=== PATIENT | male | born 1950 | race Caucasian/White ===

== ENCOUNTER 2017-08-03 18:45 | Emergency (ER) | payer BC ==
[~2017-08-03] VITALS: Ht 172.7 cm; Wt 109.1 kg
[~2017-08-03 18:45] MED LIST: 00186-0370-20 IH; ASPIR-LOW81 MG PO; ASPIRIN E.C. 8181 MG PO; AVAPRO TAB150 MG/TAB PO; AVAPRO75 MG PO; CETIRIZINE10 MG PO; COZAAR 50MG50 MG/TAB PO; COZAAR50 MG PO; CYCLOBENZAPRINE10 MG PO; DEPO-TESTOS100 MG/ML IM; DEPO-TESTOS200 MG/M1 IM; EC NAPROSYN500 MG PO; FLEXERIL 1010 MG/TAB PO; FLOMAX 0.40.4 MG/CAP PO; FLOMAX0.4 MG PO; GABAPENTIN400 MG PO; GLUCOPHAGE500 MG/TAB PO; LEVOTHROID0.1 MG PO; LEVOTHROID0.125 MG PO; LEVOTHYROXINE0.1 MG PO; LEXAPRO 10MG10 MG PO; LEXAPRO10 MG PO; LIPITOR 80MG80 MG PO; MULTAQ400 M1 PO; NASACORT A55 MCG/ACT NS; NASACORT AQ N16.5 GM NS; NASACORT55 MCG/ACT NS; NEURONTIN100 MG PO; NEURONTIN400 MG/CAP PO; NORCO 325 MG-7.1 TAB PO; PACERONE200 MG PO; PRADAXA 150MG150 MG PO; PRAVACHOL 20MG20 MG PO; PRAVACHOL40 MG PO; PRAVASTATIN40 MG PO; PROTONIX 40MG T40 MG PO; ROXICODONE 55 MG/TAB PO; SINGULAIR10 MG PO; SYMBICORT1 AE1 IH; SYNTHROID0.1 MG/TAB PO; TAMBOCOR 1100 MG/TAB PO; TAMBOCOR150 MG PO; TRI NS; TRICOR 48MG48 MG PO; ULTRAM 50MG TAB50 MG PO; ZYRTEC 10MG10 MG PO; [UNRECOGNIZED DRUG - OTHER] NS
[2017-08-03 18:48] VITALS: BP 151/96; TEMP 98.7
[2017-08-03] MEDS ORDERED: [UNRECOGNIZED DRUG - REMARK] PO (19:48)
[2017-08-03] MEDS ORDERED: ELIQUIS 5MG PO (19:49)
[2017-08-03] MEDS ORDERED: DULERA1 ARO IH (19:49)
[2017-08-03] MEDS ORDERED: FERRO-TIME325 MG PO (19:50)
[2017-08-03] MEDS ORDERED: FOLIC ACID 11 MG/TA1 PO (19:50)
[2017-08-03] MEDS ORDERED: GLUCOPHAGE500 MG/TAB PO (19:51)
[2017-08-03] MEDS ORDERED: PRAVACHOL 40MG40 MG PO (19:52)
[2017-08-03 20:18] VITALS: PULSE 85
== END 2017-08-03 20:19 | disposition home or self-care (01) ==
LOC: COL.ER 18:45
DX: S20.211A Contusion of right front wall of thorax, initial encounter (principal); M25.511 Pain in right shoulder; I10 Essential (primary) hypertension; E11.9 Type 2 diabetes mellitus without complications; I48.91 Unspecified atrial fibrillation; Z79.84 Long term (current) use of oral hypoglycemic drugs; W01.10XA Fall on same level from slipping, tripping and stumbling with subsequent striking against unspecified object, initial encounter
CPT/HCPCS: A9284

== ENCOUNTER 2020-08-16 13:50 | Emergency (ER) | payer BC, MEDICARE ==
[~2020-08-16] VITALS: Ht 172.7 cm; Wt 104.5 kg
[~2020-08-16 13:50] MED LIST changes: -COZAAR 50MG50 MG/TAB PO; +DIOVAN 80MG80 MG PO; +DULERA1 ARO IH; +ELIQUIS 5MG PO; +FERRO-TIME325 MG PO; +FOLIC ACID 11 MG/TA1 PO; +PRAVACHOL80 MG PO; +SYNTHROID0.088 MG/T PO; -SYNTHROID0.1 MG/TAB PO; +[UNRECOGNIZED DRUG - REMARK] PO
[2020-08-16 13:53] VITALS: TEMP 98.6
[2020-08-16 14:25] LABS: ALANINE AMINOTRANSFERASE 31 U/L (4-49); ALBUMIN 4.6 gm/dL (3.5-5.0); ALKALINE PHOSPHATASE 47 U/L (50-136); ANION GAP 13 mmol/L (7-16); AST,SGOT 32 U/L (15-37); BLOOD UREA NITROGEN 32 mg/dL (9-20); CALCIUM 10.3 mg/dL (8.4-10.2); CARBON DIOXIDE 26 mmol/L (22-30); CHLORIDE 102 mmol/L (98-107); CREATININE, serum 1.67 (0.66-1.25); GLUCOSE 226 mg/dL (74-106); POTASSIUM 5.1 mmol/L (3.4-5.0); SODIUM 141 mmol/L (137-145); TOTAL PROTEIN 8.5 gm/dL (6.4-8.2)
[2020-08-16 14:34] LABS: BASO # 0.1 (0.0-0.2); BASO % 0.9 % (0.0-2.0); EOS # 0.4 (0.0-0.7); EOS % 4.5 % (0-4.0); GRAN # 6.2 (1.4-6.5); GRAN % 66.4 % (42.2-75.2); HEMATOCRIT 39.8 % (42.0-52.0); HEMOGLOBIN 12.8 g/dl (13.5-18.0); LYMPH # 2.2 (1.2-3.4); LYMPH % 23.2 % (20.0-51.0); MEAN CELL VOLUME 96 fl (80.0-100.0); MEAN CORPUSCULAR HEMOGLOBIN 31 pg (27.0-31.0); MEAN CORPUSCULAR HGB CONC 32 g/dl (33.0-37.0); MEAN PLATELET VOLUME 10.3 fl (7.4-10.4); MONO # 0.4 (0.1-0.6); MONO % 4.7 % (1.7-9.3); PLATELET COUNT 231 K/mm3 (130-400); RED BLOOD COUNT 4.13 M/mm3 (4.20-5.60); REDCELL DISTRIBUTION WIDTH-CV 14.2 % (11.5-14.5)
[2020-08-16 14:37] LABS: TROPONIN-I < 0.012 ng/mL (0.000-0.035)
[2020-08-16 15:18] VITALS: BP 130/66; PULSE 64
== END 2020-08-16 15:20 | disposition home or self-care (01) ==
LOC: COL.ER 13:50
PROVIDERS: Emergency Medicine
DX: R55 Syncope and collapse (principal); E11.9 Type 2 diabetes mellitus without complications; I48.91 Unspecified atrial fibrillation; Z79.01 Long term (current) use of anticoagulants; Z79.84 Long term (current) use of oral hypoglycemic drugs
CPT/HCPCS: J7030

== ENCOUNTER 2020-11-16 12:13 | Day surgery (SDC) | payer MEDICARE, BC ==
[2020-11-16] VITALS (10 sets, daily range): BP systolic 118–143; BP diastolic 73–81; PULSE 62–70
[~2020-11-16] VITALS: Ht 172.7 cm; Wt 103.5 kg
[2020-11-16] MEDS ORDERED: CARDIZEM CD 12120 MG PO (13:27)
[2020-11-16] MEDS ORDERED: NEURONTIN400 MG/CAP PO (13:27)
[2020-11-16] MEDS ORDERED: PROTONIX 40MG T40 MG PO (13:28)
[2020-11-16 14:04] LABS: INR 1.1 (0.8-3.0); PROTHROMBIN TIME 11.7 SECONDS (9.7-12.8)
[2020-11-16 14:05] LABS: HEMATOCRIT 37.6 % (42.0-52.0); HEMOGLOBIN 12.6 g/dl (13.5-18.0); MEAN CELL VOLUME 93 fl (80.0-100.0); MEAN CORPUSCULAR HEMOGLOBIN 31 pg (27.0-31.0); MEAN CORPUSCULAR HGB CONC 34 g/dl (33.0-37.0); MEAN PLATELET VOLUME 10.2 fl (7.4-10.4); PLATELET COUNT 198 K/mm3 (130-400); RED BLOOD COUNT 4.06 M/mm3 (4.20-5.60); REDCELL DISTRIBUTION WIDTH-CV 14.2 % (11.5-14.5)
[2020-11-16 14:06] LABS: PARTIAL THROMBOPLASTIN TIME 26.8 SECONDS (26.0-37.0)
[2020-11-16 14:07] LABS: CALCIUM 9.6 mg/dL (8.4-10.2); CREATININE, serum 0.94 (0.66-1.25); POTASSIUM 4.8 mmol/L (3.4-5.0)
--- NOTE | 2020-11-16 15:10 | NUR ---
SEE MERGE FOR ALL MEDICATION ADMINISTRATION TIMES INTRA AND POST SEDATION ASSESMENTS
--- NOTE | 2020-11-16 15:30 | NUR ---
back from medical lab scientist, gcs 15, pwd, resp reg and unlabored. TR band to rt wrist. cms intact distal. NSR on monitor rate 60's. pt and updated on poc, lunch ordered, call light in reach. wctm
--- NOTE | 2020-11-16 18:40 | NUR ---
PT HAS DONE WELL DURING RECOVERY. TR band deflated no problems, site dressed with bandaid, folded 2x2 and coban, cms remains intact distal. pt has been up and amb with steady gait. iv dc'd with cath intact, dressing applied. I have reviewed dc and fu instructions, pt denies questions or concerns. to exit via wheelchair.
== END 2020-11-16 19:04 | disposition home or self-care (01) ==
LOC: COL.CAR 12:13
PROVIDERS: Internal Medicine Interventional Cardiology
DX: R07.9 Chest pain, unspecified (principal); R94.39 Abnormal result of other cardiovascular function study; I48.0 Paroxysmal atrial fibrillation; R55 Syncope and collapse; I10 Essential (primary) hypertension; E11.9 Type 2 diabetes mellitus without complications; J45.909 Unspecified asthma, uncomplicated; R42 Dizziness and giddiness; E03.9 Hypothyroidism, unspecified; Z20.822 Contact with and (suspected) exposure to COVID-19; E78.5 Hyperlipidemia, unspecified; G47.33 Obstructive sleep apnea (adult) (pediatric); Z95.818 Presence of other cardiac implants and grafts; Z79.899 Other long term (current) drug therapy; Z79.84 Long term (current) use of oral hypoglycemic drugs; Z79.890 Hormone replacement therapy; Z79.82 Long term (current) use of aspirin
CPT/HCPCS: C1769; J1644; J2250; J3010

== ENCOUNTER 2021-04-30 15:27 | Inpatient (IN) | payer MEDICARE, BC ==
[~2021-04-30] VITALS: Ht 375.9 cm; Wt 105.0 kg
[~2021-04-30 15:27] MED LIST changes: +CARDIZEM CD 12120 MG PO
[2021-08-05] VITALS (11 sets, daily range): BP systolic 128–165; BP diastolic 58–93; PULSE 61–79; TEMP 97.2–98.5
--- NOTE | 2021-08-05 07:40 | NUR ---
71 Year old male admitted to [facility] [facility]5 via ambulation with walker, is present and niece is in the waiting room. Height and weight obtained. Vitals obtained. Medications and HX reviewed. Pt used the bathroom before changing into a clean gown. Procedure verified and consent signed. First and last name + verified with the pt, who verbalized understanding the procedure. L knee area scrubbed with ENRICO, and marked by JUHI Carter. Teds applied to non-operative side. Non-slip socks are on. IV started in R hand on second attempt with 20G. IVF scanned and are infusing without difficulty. Blood drawn from L AC for lab test by laboratory tester. Blood sugar obtained from IV site prior to fluids: 130. Warm blankets provided. Pt states he has a loop recorder impant. Side rails x2. Call alarcon is within reach at bedside table. Niece brought into room.
[2021-08-05 08:58] LABS: INR 1.1 (0.8-3.0); PROTHROMBIN TIME 12.6 SECONDS (9.7-12.8)
[2021-08-05] MEDS ORDERED: ASPIRIN E.C. 8181 MG PO (09:06)
--- NOTE | 2021-08-05 11:08 | NUR ---
Pt assisted to bathroom and voided. Then back to bed. Call alarcon remains within reach. Side rails x1
--- NOTE | 2021-08-05 14:35 | NUR ---
Patient arrived to room 330 from PACU at this time, he is alert/oriented, vital signs stable, pain free at this time, family present, taking PO sips at this time
--- NOTE | 2021-08-05 16:35 | NUR ---
Patient doing well, VSS, pain controlled, getting senstaion and some mild pain to left knee, ICE in place and PO pain meds given
--- NOTE | 2021-08-05 17:44 | NUR ---
doing well post-op, eating and drinking without N/V, ambulate to bathroom with 1x asssit and walker, pain controlled, ICE in place, dressing C?D/I, will continue to monitor
--- NOTE | 2021-08-05 19:00 | NUR ---
RECEIVED CHANGE OF SHIFT REPORT FROM DAY SHIFT RN. PATIENT RESTING IN BED WITH NO NEEDS OR COMPLAINTS REPORTED AT TIME OF REPORT. INT IN PLACE. SCD ON BLE AND VIJAY TO RLE IN PLACE.
[2021-08-06 04:20] VITALS: BP 146/85; PULSE 86; TEMP 98.3
[2021-08-06 06:17] LABS: HEMATOCRIT 36.5 % (42.0-52.0)
--- NOTE | 2021-08-06 07:13 | NUR ---
CHANGE OF SHIFT REPORT GIVEN TO DAY SHIFT RNNARAYAN.
[2021-08-06 08:00] VITALS: BP 120/59; PULSE 84; TEMP 98.2
--- NOTE | 2021-08-06 09:34 | NUR ---
Initial visit; Patient thanked [employer] Attendant for looking in on him and offering God's blessings and to keep him in her prayers.
[2021-08-06 11:18] VITALS: BP 131/75; PULSE 80; TEMP 98
--- NOTE | 2021-08-06 11:41 | NUR ---
DRESSING CHANGE COMPLETE WITH AQUACELL PLACED OVER INCISION. EDGES WELL APPROXIMATED, NO DRAINAGE NOTED.
--- NOTE | 2021-08-06 14:28 | NUR ---
DISCONTINUED IV PER ORDERS. PT TOLERATED WELL.
[2021-08-06] MEDS ORDERED: ASPI325T6 PO (14:59)
[2021-08-06] MEDS ORDERED: ROXICODONE 55 MG/TAB PO (15:00)
[2021-08-06] MEDS ORDERED: ULTRAM 50MG TAB50 MG PO (15:00)
[2021-08-06] MEDS ORDERED: SENOKOT S 50 MG1 TAB PO (15:01)
--- NOTE | 2021-08-06 16:35 | NUR ---
DISCHARGE INSTRUCTIONS REVIEWED WITH PT AND . QUESTIONS SOLICITED AND ANSWERED. IV TO RH DISCONTINUED PER ORDERS. PT LEFT UNIT PER WHEEL CHAIR WITH STAFF.
== END 2021-08-06 16:37 | disposition home or self-care (01) | DRG 470 ==
LOC: SURG 06-20 07:30 → INPTSU 08-05 07:26 → SURG 08-05 07:30
PROVIDERS: ADMIT Orthopaedic Surgery
PROC: 0SRD0J9 Replacement of Left Knee Joint with Synthetic Substitute, Cemented, Open Approach (ICD-10-PCS; principal; 2021-08-05 13:25)
DX: M17.12 Unilateral primary osteoarthritis, left knee (principal); J45.909 Unspecified asthma, uncomplicated; E11.9 Type 2 diabetes mellitus without complications; I10 Essential (primary) hypertension; E78.00 Pure hypercholesterolemia, unspecified; I48.91 Unspecified atrial fibrillation; G47.33 Obstructive sleep apnea (adult) (pediatric); E03.9 Hypothyroidism, unspecified; Z23 Encounter for immunization
CPT/HCPCS: A9284; C1713; C1776; J0690; J2250; J2704; J3010; J7120

== ENCOUNTER → 2022-03-10 | Outpatient (CLI) | payer MEDICARE, BC ==
[~2022-03-10] MED LIST changes: +ASPI325T6 PO; +SENOKOT S 50 MG1 TAB PO
== END ==
LOC: COL.RAD 08:07
DX: R90.82 White matter disease, unspecified (principal); R51.9 Headache, unspecified
CPT/HCPCS: A9575

== ENCOUNTER 2023-12-21 10:27 | Day surgery (SDC) | payer MEDICARE, BC ==
[~2023-12-21] VITALS: Ht 175.3 cm; Wt 100.2 kg
[~2023-12-21 10:27] MED LIST changes: +LR 1,000 ML IV SCH
[2023-12-21] MEDS ORDERED: dexAMETHasone 10 MG/ML VIAL ONE (11:24)
[2023-12-21] MEDS ORDERED: Glycopyrrolate 0.2 MG/ML 1 ML VIAL ONE (11:24)
[2023-12-21] MEDS ORDERED: Midazolam 2 MG/2 ML VIAL ONE (11:24)
[2023-12-21] MEDS ORDERED: fentaNYL 50 MCG/ML 2 ML VIAL ONE (11:24)
[2023-12-21] MEDS ORDERED: Lidocaine PF 2% (20 MG/ML) 5 ML VIAL ONE (11:24)
[2023-12-21] MEDS ORDERED: Ondansetron 4 MG/2 ML VIAL ONE (11:24)
[2023-12-21] MEDS ORDERED: NS 10 ML IV ONE (11:24)
[2023-12-21] MEDS ORDERED: Rocuronium 50 MG/5 ML Multi-Dose VIAL ONE ×2 (11:30→13:05)
[2023-12-21] MEDS ORDERED: HYDROmorphone 1 MG/1 ML SYRINGE [PACU/SDC ONLY] IV PRN (12:15)
[2023-12-21] MEDS ORDERED: Meperidine 50 MG/ML 1 ML VIAL IV PRN (12:15)
[2023-12-21] MEDS ORDERED: Ondansetron 4 MG/2 ML VIAL IV PRN ×2 (12:15→12:45)
[2023-12-21] MEDS ORDERED: Morphine 2 MG/1 ML VIAL [PACU/SDC ONLY] IV PRN (12:15)
[2023-12-21] MEDS ORDERED: NEURONTIN600 MG/TAB PO (12:35)
[2023-12-21 12:43] VITALS: BP 135/63; PULSE 89; TEMP 98.2
[2023-12-21] MEDS ORDERED: LR 1,000 ML IV ONE (13:45)
[2023-12-21] MEDS ORDERED: NORCO 325 MG-51 TAB PO (13:55)
[2023-12-21 15:10] VITALS: BP 118/66; PULSE 80; TEMP 97.6
[2023-12-21 15:15] VITALS: BP 99/67; PULSE 81
[2023-12-21 15:30] VITALS: BP 116/51; PULSE 77
== END 2023-12-21 16:30 | disposition home or self-care (01) ==
LOC: SDCO 10:27
DX: K43.6 Other and unspecified ventral hernia with obstruction, without gangrene (principal)
CPT/HCPCS: C1781; J0690; J1100; J1170; J2250; J2270; J2405; J2704; J2795; J3010; J7120